=== PATIENT | female | born 2000 | race Caucasian/White ===

== ENCOUNTER 2023-04-08 13:58 | Outpatient (CLI) | payer OTHER ==
[2023-04-08 18:03] LABS: BILIRUBIN,URINE NEGATIVE (NEGATIVE); GLUCOSE, URINE (UA) NEGATIVE (NEGATIVE); KETONES,URINE (UA) NEGATIVE (NEGATIVE); LEUKOCYTE ESTERASE, URINE NEGATIVE (NEGATIVE); NITRITE,URINE NEGATIVE (NEGATIVE); OCCULT BLOOD,URINE NEGATIVE (NEGATIVE); PROTEIN,URINE NEGATIVE (NEGATIVE); UROBILINOGEN,URINE 0.2 (NORMAL) E.U./dL (NORMAL)
[2023-04-08 18:12] LABS: CLARITY,URINE CLEAR (CLEAR)
[2023-04-08 18:13] LABS: BASOPHILS % (AUTO) 0.3 %; EOSINOPHILS # (AUTO) 0.1 10^3/uL (0.0-0.7); EOSINOPHILS % (AUTO) 1.8 %; HCT - HEMATOCRIT 35.7 % (37.0-47.0); HGB - HEMOGLOBIN 12.5 g/dL (12.0-16.0); LYMPHOCYTES # (AUTO) 1.5 10^3/uL (1.5-3.5); LYMPHOCYTES % (AUTO) 21.9 %; MEAN CORPUSCULAR HEMOGLOBIN 32.9 pg (27.0-31.0); MEAN CORPUSCULAR VOLUME 93.9 fL (81.0-99.0); MEAN PLATELET VOLUME 11.2 fL (7.9-10.8); MONOCYTES # (AUTO) 0.4 10^3/uL (0.0-1.0); MONOCYTES % (AUTO) 5.7 %; NEUTROPHILS # (AUTO) 4.8 10^3/uL (1.5-6.6); PLT - PLATELET COUNT 197 10^3/uL (130-450); RED CELL DISTRIBUTION WIDTH 12.1 % (12.0-15.0); WHITE BLOOD COUNT 6.8 x10^3/uL (4.8-10.8)
[2023-04-08 18:37] LABS: BACTERIA,URINE None Seen /HPF (None Seen); RBC,URINE 0-5 /HPF (0-5); SQUAMOUS EPITHELIAL CELL,UR MOD Squamous (<= Few); WBC,URINE 0-3 /HPF (0-5)
[2023-04-11 01:07] LABS: HBsAG SCREEN Negative (Negative); HCV AB Non Reactive (Non Reactive); HIV SCREEN 4TH GENERATION Non Reactive (Non Reactive)
[2023-04-11 04:09] LABS: RPR Non Reactive (Non Reactive)
[2023-04-11 09:10] LABS: VARICELLA-ZOSTER AB IGG 945 index (Immune >165)
== END 2023-04-08 13:59 | disposition home or self-care (01) ==
LOC: LAB.N 13:58
PROVIDERS: ATTEND Obstetrics & Gynecology
DX: Z34.90 Encounter for supervision of normal pregnancy, unspecified, unspecified trimester (principal)
CPT/HCPCS: 36415; 81001; 85025; 86592; 86762; 86787; 86803; 86850; 86900; 86901; 87086; 87340; 87389

== ENCOUNTER 2023-04-12 11:45 | Outpatient (CLI) | payer OTHER ==
[2023-04-12 18:04] LABS: CHLAMYDIA TRACHOMATIS DNA NEGATIVE (NEGATIVE); NEISSERIA GONORRHOEAE DNA NEGATIVE (NEGATIVE); TRICHOMONAS VAGINALIS DNA NEGATIVE (NEGATIVE)
== END 2023-04-12 23:59 | disposition home or self-care (01) ==
LOC: LAB 11:45
PROVIDERS: ATTEND Obstetrics & Gynecology
DX: Z11.3 Encounter for screening for infections with a predominantly sexual mode of transmission (principal)
CPT/HCPCS: 87491; 87591; 87661

== ENCOUNTER 2023-04-12 12:46 | Outpatient (CLI) | payer OTHER | END 2023-04-12 12:47 | disposition home or self-care (01) | LOC: LAB 12:46 | PROVIDERS: ATTEND Obstetrics & Gynecology | DX: Z53.9 Procedure and treatment not carried out, unspecified reason (principal) ==

== ENCOUNTER 2023-04-16 21:06 | Outpatient (CLI) | payer OTHER ==
--- NOTE | 2023-04-18 11:33 | Ultrasound Report ---
PROCEDURE: OB First Trimester INDICATIONS: POSITIVE TEST OUTSIDE/PRIOR DATING DATA: Last menstrual period (LMP): 12/30/2022. LMP-based estimated date of delivery (CHERISE): 10/06/2023. First dating scan (date and location): 04/16/2023. Estimated date of delivery (CHERISE) from first dating scan: 09/30/2023. TECHNIQUE: Real-time scanning was performed of the fetus and maternal pelvic organs, with image documentation. COMPARISON: None. FINDINGS: Intrauterine gestational sac present. Embryo: Biparietal diameter: 3.4 cm, 16 weeks 3 days Head circumference: 12.0 cm, 16 weeks 0 days Abdominal circumference: 10.5 cm, 16 weeks 3 days Femur length: 1.9 cm, 15 weeks 5 days Gestational age based on LMP: 15 weeks 2 days Gestational age based on current ultrasound: 16 weeks 1 day Estimated weight: 144 g, 89th percentile for clinical gestational Heart rate: 143 bpm. Other: No perigestational fluid collection. Measurement variability in dating: +/- 4 weeks by LMP, +/- 7 days by mean sac diameter (use before 6 weeks gestation if crown-rump length not able to be measured), +/- 5 days by crown-rump length (6-12 weeks gestation). Maternal organs: Ovaries appear within normal limits. IMPRESSION: Single live intrauterine with estimated gestational age of 16 weeks 1 day, giving an ultras ound CHERISE of 09/30/2023. Recommend follow-up anatomic survey at 18-20 weeks gestation. Reviewed by: Manuel Jeffries MD on 04/18/2023 11:31 AM PDT Approved by: Manuel Jeffries MD on 04/18/2023 11:31 AM PDT Station ID: [id number]
== END 2023-04-16 21:07 | disposition home or self-care (01) ==
LOC: DI 21:06
PROVIDERS: ATTEND Obstetrics & Gynecology
DX: Z34.92 Encounter for supervision of normal pregnancy, unspecified, second trimester (principal)

== ENCOUNTER 2023-04-26 15:32 | Outpatient (CLI) | payer OTHER ==
[2023-04-29 15:08] LABS: AFP MOM 0.81 (.); AFP VALUE 34.4 ng/mL (.); GEST. AGE ON COLLECTION DATE 16.7 weeks (.); INSULIN DEP DIABETES No (.); MATERNAL AGE AT EDD 24.4 yr (.); MULTIPLE GESTATION No (.); OPEN SPINA BIFIDA RISK 1 IN 10000 (.); RACE Caucasian (.); RESULTS Report (.); TEST RESULTS *Screen Negative* (.); WEIGHT 127 lbs (.)
== END 2023-04-26 15:33 | disposition home or self-care (01) ==
LOC: LAB 15:32
PROVIDERS: ATTEND Obstetrics & Gynecology
DX: Z82.79 Family history of other congenital malformations, deformations and chromosomal abnormalities (principal)
CPT/HCPCS: 36415; 82105

== ENCOUNTER 2023-05-20 18:30 | Outpatient (CLI) | payer OTHER ==
--- NOTE | 2023-05-21 12:21 | Ultrasound Report ---
PROCEDURE: OB Detailed Eval INDICATIONS: FAM HX OF CHROMOSOMAL ABNORMALITY OUTSIDE/PRIOR DATING DATA: Last menstrual period (LMP): 12/30/2022. LMP-based estimated date of delivery (CHERISE): 10/06/2023. First dating scan (date and location): 04/16/2023. Estimated date of delivery (CHERISE) from first dating scan: 09/30/2023. TECHNIQUE: Real-time scanning was performed of the fetus, with image documentation and biometric measurements. COMPARISON: OB ultrasound, 04/16/2023. FINDINGS: General: A single living intrauterine gestation is present. Presentation: Vertex Placenta: Placental position is anterior, without previa. Amniotic fluid index: 13.3 cm, largest pocket 4.6 cm. heart rate: 137 beats per minute. Maternal cervical canal: Closed measuring 2.4-3.0 cm long; normal length is 2.5 cm or more. biometrics: Biparietal diameter: 21 weeks 5 days Head circumference: 21 weeks 3 days Abdominal circumference: 1 weeks 3 days Femur length: 19 weeks 6 days Estimated gestational age from initial scan: 20 weeks 1 day Composite gestational age from present scan: 20 weeks 5 days Estimated weight and percentile: 379.2 g; 81.8% Measurement variability in biometric dating: +/- 10 days from 12-20 weeks gestation, +/- 2 weeks from 20-30 weeks gestation, +/- 3 weeks at 30 weeks gestation or later. Anatomic survey: Neuro: Ventricles are normal at less than 10 mm. Cisterna magna is normal at 3-11 mm. Cerebellum i s normal in size and morphology. Nuchal skin fold: Normal at less than 6 mm between 14 and 20 weeks gestational age. Face: Nose and lips, facial profile are normal. Spine: No evidence for spina bifida. Heart: There is a 3 millimeter echogenic focus in the left ventricle. 4-chambered heart is present, with normal ventricular outflow tracts. Diaphragm: Diaphragm is intact. Stomach: Left-sided stomach is present. Kidneys: No hydronephrosis. Normal is less than 5 mm in 2nd trimester, less than 7 mm in 3rd trimester. Cord: 3 vessel cord has orthotopic insertion. Nuchal cord is noted. Bladder: Normal in size. Extremities: All 4 extremities are visualized. IMPRESSION: 1. A single living IUP with appropriate interval growth. 2. An echogenic left ventricle. This finding is nonspecific and of indeterminate clinical significanc e. Please correlate with with other care and formation and risk factors. Consider follow-up imaging as clinically indicated. 3. Nuchal cord noted. Reviewed by: Krishna Isaac MD on 05/21/2023 12:20 PM PDT Approved by: Krishna Isaac MD on 05/21/2023 12:20 PM PDT Station ID: [id number]
== END 2023-05-20 18:31 | disposition home or self-care (01) ==
LOC: DI 18:30
PROVIDERS: ATTEND Obstetrics & Gynecology
DX: Z34.92 Encounter for supervision of normal pregnancy, unspecified, second trimester (principal); Z82.79 Family history of other congenital malformations, deformations and chromosomal abnormalities